=== PATIENT | male | born 1970 | race Caucasian/White ===

== ENCOUNTER 2018-09-05 08:54 | Emergency (ER) | payer BC ==
[2018-09-05] MEDS ORDERED: Levofloxacin TAB* 500 MG PO ONE (10:36)
--- NOTE | 2018-09-05 10:50 | ED ---
GI/ HPI - HPI Summary HPI Summary: Patient is a 48-year-old male who is otherwise healthy presenting to the ED with a 2 day history of right-sided testicular pain and swelling. He states he also developed some fevers over the past 2 days as well as sweats and chills. He has never had this in the past. No history of STDs. No history of orchitis or epididymitis. No history of undescended testes. Denies taking any ibuprofen or Tylenol for comfort. Symptoms are worse with ambulation and standing and better with rest. Symptoms have remained constant and has been worsening, no history of torsion. Denies any urinary symptoms including back pain or UTI symptoms. - History of Current Complaint Chief Complaint: EDUrogenitalProblems Time Seen by Provider: 09/05/18 09:35 Stated Complaint: RIGHT TESTICULAR PAIN Hx Obtained From: Patient Onset/Duration: Started Hours Ago Timing: Constant Severity: Moderate Current Severity: Moderate Pain Intensity: 6 Additional Locations for Males: Testicles Associated Signs and Symptoms: Positive: Negative Aggravating Factor(s): Nothing Alleviating Factor(s): Nothing - Allergy/Home Medications Allergies/Adverse Reactions: Allergies Allergy/AdvReac Type Severity Reaction Status Date / Time No Known Allergies Allergy Verified 09/05/18 09:38 PMH/Surg Hx/FS Hx/Imm Hx Previously Healthy: Yes - Immunization History Hx Pertussis Vaccination: No Immunizations Up to Date: Yes Infectious Disease History: No Infectious Disease History: Denies: Traveled Outside the [place] in Last 30 Days - Social History Occupation: Employed Full-time Lives: With Family Alcohol Use: None Hx Substance Use: No Substance Use Type: Reports: None Hx Tobacco Use: No Smoking Status (MU): Never Smoked Tobacco Review of Systems Constitutional: Negative Negative: Fever, Chills, Fatigue, Skin Diaphoresis Negative: Shortness Of Breath, Cough Negative: Abdominal Pain, Vomiting, Diarrhea, Nausea Genitourinary: Negative Positive: no symptoms reported, see HPI, other - right testicular pain Negative: Arthralgia, Myalgia Neurological: Negative All Other Systems Reviewed And Are Negative: Yes Physical Exam Triage Information Reviewed: Yes Vital Signs On Initial Exam: Initial Vitals Temp Pulse Resp BP Pulse Ox 97.5 F 91 18 142/95 98 09/05/18 08:57 09/05/18 08:57 09/05/18 08:57 09/05/18 08:57 09/05/18 08:57 Vital Signs Reviewed: Yes Appearance: Positive: Well-Appearing, Well-Nourished Skin: Positive: Warm, Skin Color Reflects Adequate Perfusion Neck: Positive: Supple, No Lymphadenopathy Respiratory/Lung Sounds: Positive: Clear to Auscultation, Breath Sounds Present Cardiovascular: Positive: RRR, Pulses are Symmetrical in both Upper and Lower Extremities Male Genital Exam: Positive: Normal Genitalia - uncircumcised, Scrotum Tenderness (R), Testicular Tenderness (R), Other - right sided testicular swelling. Negative: Inguinal Tenderness, Lesions, Scrotum Tenderness (L), Testicular Tenderness (L), Urethral Discharge Musculoskeletal: Positive: Normal, Strength/ROM Intact Neurological: Positive: Sensory/Motor Intact, Alert, Oriented to Person Place, Time, Speech Normal Psychiatric: Positive: Affect/Mood Appropriate AVPU Assessment: Alert Diagnostics - Vital Signs Vital Signs Temp Pulse Resp BP Pulse Ox 09/05/18 08:57 97.5 F 91 18 142/95 98 - Laboratory Result Diagrams: 09/05/18 11:26 09/05/18 11:26 Lab Statement: Any lab studies that have been ordered have been reviewed, and results considered in the medical decision making process. GIGU Course/Dx - Course Course Of Treatment: During this course of treatment, the patient is evaluated for right-sided testicular pain and swelling. On physical examination, there is a large amount of swelling to the right testicle. Epididymis and spermatic cord without specific tenderness. Swelling to the right testicle. Positive bilateral cremaster reflex. No abnormal elevation of the testes or shortening of the spermatic cord. No scrotal erythema bilaterally. Positive Prehn's sign. No evidence of hydrocele or varicocele on examination. Small palpable mass to the right testes, no palpable mass to the left testes, no drainage or discharge from the penis. Patient is afebrile here in the ED, however his endorsing sweats, chills and fevers over the course of the past 2 days. He states other than his fevers, he has been feeling otherwise well. Ultrasound obtained. CBC and CRP obtained. CRP elevated at 38. Testicular ultrasound is positive for epididymoorchitis. She is given Levaquin here in the ED. He is also given 90 prescription. He will follow up with his PCP. He denies any furthering symptoms at this time and is okay for discharge. - Diagnoses Differential Diagnoses - Male: Other - Epididymitis, orchitis, epididymoorchitis , testicular mass Provider Diagnoses: Epididymo-orchitis Discharge - Sign-Out/Discharge Documenting (check all that apply): Patient Departure Patient Received Moderate/Deep Sedation with Procedure: No - Discharge Plan Condition: Stable Disposition: HOME Prescriptions: Levofloxacin TAB* [Levaquin TAB*] 500 mg PO DAILY #9 tab Patient Education Materials: Epididymo-Orchitis (ED) Referrals: No Primary Care Phys,NOPCP [Primary Care Provider] - Additional Instructions: Ibuprofen 600mg three times daily Tylenol 650mg three times daily Levaquin medication - once daily x 9 days (start this medication tomorrow) as your first dose was here in the ED Please follow up with PCP for any continuing symptoms - Billing Disposition and Condition Condition: STABLE Disposition: Home
[2018-09-05 11:35] LABS: ABS Eosinophils 0.1 10^3/ul (0-0.6); ABS Lymphocytes 1.2 10^3/ul (1.0-4.8); ABS Monocytes 0.6 10^3/ul (0-0.8); ABS Neutrophils 8.2 10^3/ul (1.5-7.7); Eosinophil % 1.4 %; Hematocrit 42 % (42-52); Hemoglobin 14.7 g/dL (14.0-18.0); Lymphocyte % 11.9 %; Mean Corpuscular HGB Conc 35 g/dL (31-36); Mean Corpuscular Hemoglobin 33 pg (27-31); Mean Corpuscular Volume 95 fL (80-94); Mean Platelet Volume 6.4 fL (7.4-10.4); Nucleated Red Blood Cells % 0.1; Platelet Count 281 10^3/uL (150-450); Red Blood Count 4.47 10^6 /uL (4.18-5.48); Red Cell Distribution Width 13 % (10-15); White Blood Count 10.2 10^3/uL (3.5-10.8)
[2018-09-05 11:57] LABS: Albumin 3.9 g/dL (3.2-5.2); BUN/Creatinine Ratio 14.6 (8-20); C Reactive Protein 38.85 mg/L (<8.01); Calcium 9.7 mg/dL (8.6-10.3); EGFR African American 109.9 (>60); EGFR Non-African American 90.9 (>60); Globulin 3.9 g/dL (2-4); Potassium 4.1 mmol/L (3.5-5.0); Total Bilirubin 0.6 mg/dL (0.2-1.0); Total Protein 7.8 g/dL (6.4-8.9)
[2018-09-05 12:11] VITALS: BP 140/87
== END 2018-09-05 12:08 | disposition home or self-care (01) ==
LOC: ED 08:54
DX: N45.3 Epididymo-orchitis (principal)
CPT/HCPCS: 36415; 76870; 80053; 85025; 86140; 99283